=== PATIENT | female | born 1960 | race Caucasian/White ===

== ENCOUNTER 2024-11-08 05:55 | Day surgery (SDC) | payer MEDICARE, BC ==
[2024-11-08] MEDS ORDERED: Midazolam 1 MG/ML 2 ML SDV IV ONE (06:13)
[2024-11-08] MEDS ORDERED: Midazolam 1 MG/ML 2 ML SDV ONE (06:13)
[2024-11-08] MEDS ORDERED: fentaNYL 100 MCG/2 ML SDV IV ONE (06:13)
[2024-11-08] MEDS ORDERED: fentaNYL 100 MCG/2 ML SDV ONE (06:13)
[2024-11-08] MEDS: Dextrose 5%-0.45% NaCl 1,000 ML IV SCH (06:19)
[2024-11-08] MEDS: fentaNYL 100 MCG/2 ML SDV IV ONE ×2 (07:08)
[2024-11-08] MEDS: Midazolam 1 MG/ML 2 ML SDV IV ONE ×6 (07:09→07:22)
[2024-11-08 08:39] VITALS: BP 106/59; PULSE 60
== END 2024-11-08 09:03 | disposition home or self-care (01) ==
LOC: DL.ENDO 05:55
PROVIDERS: ATTEND Internal Medicine Gastroenterology
DX: Z12.11 Encounter for screening for malignant neoplasm of colon (principal); K57.30 Diverticulosis of large intestine without perforation or abscess without bleeding; E66.3 Overweight; Z88.0 Allergy status to penicillin; Z68.27 Body mass index [BMI] 27.0-27.9, adult
CPT/HCPCS: G0121; J2250; J3010; J7799